=== PATIENT | male | born 2000 | race Caucasian/White ===

== ENCOUNTER 2025-04-16 20:12 | Emergency (ER) | payer SELFPAY ==
[2025-04-16] MEDS ORDERED: Sodium Chloride 0.9% 10 ML Syringe FLUSH PRN (20:24)
[2025-04-16] MEDS ORDERED: Naloxone 0.4 MG/ML SDV IVPUSH PRN (20:24)
[2025-04-16 20:31] LABS: BASOPHILS ABSOLUTE AUTO 0.0 K/mm3 (0.0-0.2); BASOPHILS PERCENT AUTO 0.2 % (0.0-1.0); EOSINOPHILS ABSOLUTE AUTO 0.2 K/mm3 (0.0-0.4); EOSINOPHILS PERCENT AUTO 1.9 % (0.0-6.0); IMMATURE GRAN ABSOLUTE AUTO 0.11 K/mm3 (0.00-0.05); IMMATURE GRAN PERCENT AUTO 1.0 % (0.0-0.4); LYMPHOCYTES ABSOLUTE AUTO 3.7 K/mm3 (1.0-4.8); LYMPHOCYTES PERCENT AUTO 31.9 % (24.0-44.0); MEAN PLATELET VOLUME 9.0 fl (9.4-12.4); MONOCYTES ABSOLUTE AUTO 0.9 K/mm3 (0.0-0.8); MONOCYTES PERCENT AUTO 8.2 % (0.0-8.0); NEUTROPHILS ABSOLUTE AUTO 6.5 K/mm3 (1.8-7.7); NEUTROPHILS PERCENT AUTO 56.8 % (41.0-71.0); NRBC ABSOLUTE 0.00 (0.00-0.02); NRBC PERCENT 0.0 % (0.0-0.2); PLATELET COUNT,PLT 341 K/mm3 (150-400); RED BLOOD CELL COUNT 4.72 M/mm3 (4.52-5.90); WHITE BLOOD CELL COUNT,WBC 11.49 K/mm3 (3.9-11.3)
[2025-04-16] MEDS: Diphtheria,Pertussis(Acell),Tetanus Vaccine 0.5 ML Syringe IM ONE (20:37)
[2025-04-16 20:50] LABS: A/G RATIO 1.3 (1-2); ALANINE AMINOTRANSFERASE,ALT 37 U/L (16-63); ASPARTATE AMNIOTRANSFERASE,AST 24 U/L (15-37); BILIRUBIN TOTAL 0.3 mg/dL (0.2-1.0); BLOOD UREA NITROGEN,BUN 15 mg/dL (7-18); CARBON DIOXIDE,CO2 27 mEq/L (21-32); CHLORIDE,CL 101 mEq/L (98-107); CREATININE 0.9 mg/dL (0.7-1.3); ESTIMATED GFR 122 mL/min (>60); ETHANOL BLOOD MEDICAL 0.21 gm% (0.00); GLUCOSE RANDOM 116 mg/dL (70-99); POTASSIUM,K 4.6 mEq/L (3.5-5.1); PROTEIN TOTAL,TP 7.7 g/dl (6.4-8.2); SODIUM,NA 138 mEq/L (136-145)
[2025-04-17] MEDS: Ondansetron 4 MG/2 ML SDV IVPUSH ONE (00:40)
[2025-04-17] MEDS ORDERED: Naloxone 0.4 MG/ML SDV IVPUSH PRN (01:22)
== END 2025-04-17 01:40 | disposition home or self-care (01) ==
LOC: JD.ED 20:12
DX: S68.122A Partial traumatic metacarpophalangeal amputation of right middle finger, initial encounter (principal); Z79.899 Other long term (current) drug therapy; V97.32XA Injured by rotating propeller, initial encounter
CPT/HCPCS: 12001; 36415; 73140; 80053; 80307; 85025; 90471; 90715; 96374; 96375; 96376; 99283; J0690; J2003; J2405; 99284; J1171

== ENCOUNTER 2025-04-18 00:44 | Emergency (ER) | payer SELFPAY ==
[2025-04-18] MEDS: Acetaminophen/oxyCODONE 325-5 MG Tab PO ONE (02:04)
[2025-04-18] MEDS: Ketorolac 60 MG/2 ML SDV IM ONE (02:05)
== END 2025-04-18 02:35 | disposition home or self-care (01) ==
LOC: JD.ED 00:44
DX: G89.18 Other acute postprocedural pain (principal); M79.644 Pain in right finger(s); F17.210 Nicotine dependence, cigarettes, uncomplicated; Z79.899 Other long term (current) drug therapy
CPT/HCPCS: 96372; 99283; A9270; J1885